=== PATIENT | female | born 1970 | race Caucasian/White ===

== ENCOUNTER 2018-04-20 20:41 | Emergency (ER) | payer BC ==
[2018-04-20 21:45] LABS: Absolute Lymphocytes (CBC) 1.6 K/uL (0.7-4.9); Absolute Monocytes 0.4 K/uL (0.1-1.3); Absolute Neutrophil 9.8 K/uL (1.8-8.0); Basophils % 0.4 % (0-1.3); Eosinophils % 1.1 % (0-4.4); Hematocrit 40.2 % (36.0-45.0); Lymphocytes % 13.4 % (15.3-44.8); MPV 9.6 fL (7.6-11.3); Monocytes % 3.5 % (3.3-12.3); RBC Red Blood Cell Count 4.41 M/uL (3.86-4.86)
[2018-04-20 21:47] LABS: Protime INR 0.96
[2018-04-20 22:01] LABS: ALT/SGPT 46 U/L (12-78); AST/SGOT 55 U/L (15-37); Albumin 3.9 g/dL (3.4-5.0); Alkaline Phosphatase 73 U/L (45-117); BUN Blood Urea Nitrogen 13 mg/dL (7-18); Bicarbonate 26 mmol/L (21-32); Bilirubin Direct 0.1 mg/dL (0-0.2); Bilirubin Total 0.3 mg/dL (0.2-1.0); Glucose Level 85 mg/dL (74-106); Magnesium 2.3 mg/dL (1.8-2.4); NT PRO-BNP 48 pg/mL (<125); Potassium 3.3 mmol/L (3.5-5.1); Protein, Total 7.2 g/dL (6.4-8.2); Sodium Level 140 mmol/L (136-145); Troponin (Emerg Dept Use Only) < 0.02 ng/mL (0.0-0.045)
--- NOTE | 2018-04-20 22:40 | ER ---
Nurse's Notes [facility] Name: Briana Navarro Age: 47 yrs Sex: Female : 1970 Arrival Date: 04/20/2018 Time: 20:42 Bed 20 Private MD: Melvin Zafar B Diagnosis: Chest pain, unspecified Presentation: 04/20 20:45 Presenting complaint: Patient states: that approx 1 hr ago she started to have chest fc pain and abd pain along with shortness of breath. Denies any radiation to back or arm and no nausea or vomiting. Transition of care: patient was not received from another setting of care. Onset of symptoms was April 20, 2018 at 19:30. Risk Assessment: Do you want to hurt yourself or someone else? Patient reports no desire to harm self or others. Initial Sepsis Screen: Does the patient meet any 2 criteria? No. Patient's initial sepsis screen is negative. Does the patient have a suspected source of infection? No. Patient's initial sepsis screen is negative. Care prior to arrival: Medication(s) given: TUMS x 2 at 1930 and Simethicone 120 mg at 1999. 20:45 Method Of Arrival: Ambulatory fc 20:45 Acuity: [place] 3 fc Triage Assessment: 23:24 General: Behavior is calm, cooperative, appropriate for age. jd3 VETERINARIAN SMALL ANIMAL: 20:45 LMP 04/20/2018 Historical: - Allergies: 20:57 Codeine; fc - Home Meds: 20:57 Cymbalta 60 mg oral cpDR 1 cap once daily [Active]; Adderall XR 40 mg Oral 1 cap once fc daily [Active]; Kasemia 7.5 mg 1 tab daily [Active]; - PMHx: 20:57 ADD/ADHD; Depression; fc - PSHx: 20:57 ; Lasik; fc - Immunization history:: Last tetanus immunization: up to date Flu vaccine is up to date. - Social history:: Smoking status: Patient/guardian denies using tobacco, Patient uses alcohol, occasionally. - Ebola Screening: : Patient negative for fever greater than or equal to 101.5 degrees Fahrenheit, and additional compatible Ebola Virus Disease symptoms Patient denies exposure to infectious person Patient denies travel to an Ebola-affected area in the 21 days before illness onset. Screenin:45 Abuse screen: Denies threats or abuse. Nutritional screening: No deficits noted. fc Tuberculosis screening: No symptoms or risk factors identified. Fall Risk None identified. Assessment: 21:01 General: Appears in no apparent distress. uncomfortable. Pain: Complains of pain in jd3 chest Pain does not radiate. Quality of pain is described as sharp, squeezing, Pain began suddenly, Is intermittent. Neuro: Level of Consciousness is awake, alert, obeys commands, Oriented to person, place, time, situation. Cardiovascular: Heart tones S1 S2 present Capillary refill < 3 seconds Patient's skin is warm and dry. Rhythm is regular. Respiratory: Reports shortness of breath Airway is patent Respiratory effort is even, unlabored, Respiratory pattern is regular, symmetrical, Breath sounds are clear bilaterally. GI: No signs and/or symptoms were reported involving the gastrointestinal system. : No signs and/or symptoms were reported regarding the genitourinary system. EENT: No signs and/or symptoms were reported regarding the EENT system. Derm: Skin is intact, Skin is dry, Skin is normal, Skin temperature is warm. Musculoskeletal: Circulation, motion, and sensation intact. Range of motion: intact in all extremities. 21:49 Reassessment: Patient appears in no apparent distress at this time. Patient and/or jd3 family updated on plan of care and expected duration. Pain level reassessed. Patient is alert, oriented x 3, equal unlabored respirations, skin warm/dry/pink. Patient states feeling better. 23:42 Reassessment: Patient appears in no apparent distress at this time. Patient and/or jd3 family updated on plan of care and expected duration. Pain level reassessed. Patient is alert, oriented x 3, equal unlabored respirations, skin warm/dry/pink. Patient states feeling better. 23:50 Reassessment: pt requesting to leave after pain relieved. pt reassured and provider jd3 notified, awaiting provider to discuss plan of care with pt. 04/21 00:42 Reassessment: Patient appears in no apparent distress at this time. Patient and/or jd3 family updated on plan of care and expected duration. Pain level reassessed. Patient is alert, oriented x 3, equal unlabored respirations, skin warm/dry/pink. Vital Signs: 04/20 20:45 BP 122 / 65; Pulse 86; Resp 18; Temp 97.6(TE); Pulse Ox 99% on R/A; Weight 86.18 kg fc (R); Height 5 ft. 6 in. (167.64 cm) (R); Pain 7/10; 21:49 BP 130 / 77; Pulse 78; Resp 17 S; Pulse Ox 100% on R/A; jd3 23:43 BP 118 / 75; Pulse 80; Resp 17 S; Pulse Ox 100% on R/A; jd3 04/21 00:42 BP 120 / 64; Pulse 78; Resp 16 S; Pulse Ox 98% on R/A; jd3 04/20 20:45 Body Mass Index 30.67 (86.18 kg, 167.64 cm) fc ED Course: 04/20 20:42 Patient arrived in ED. am2 20:43 Melvin Zafar MD is Private Physician. am2 20:45 Arm band placed on Patient placed in an exam room, on a stretcher. fc 20:45 Patient has correct armband on for positive identification. Placed in gown. Bed in low fc position. Call light in reach. Side rails up X 1. child monitor on. Pulse ox on. NIBP on. 20:45 No provider procedures requiring assistance completed. Patient maintains SpO2 fc saturation greater than 95% on room air. 20:54 Triage completed. fc 20:55 Sal Carlos RN is Primary Nurse. jd3 20:58 Ankit Loo PA is PHCP. jr8 20:58 Ajit Reeder MD is Attending Physician. jr8 21:05 Inserted saline lock: 20 gauge in left antecubital area, using aseptic technique. Blood gm collected. 21:51 XRAY Chest (1 view) In Process Unspecified. EDMS 22:40 Alberto Dutta MD is Hospitalizing Provider. jr8 22:49 EKG done, by ED staff, reviewed by Ankit FITZGERALD. bb 23:24 Inserted saline lock: 20 gauge in right antecubital area, using aseptic technique. jd3 Blood collected. Patient admitted, IV remains in place. 04/21 00:47 Joselo Hines MD is Referral Physician. jr8 Administered Medications: 04/20 22:59 Drug: Zofran 4 mg Route: IVP; Site: right antecubital; jd3 23:50 Follow up: Response: No adverse reaction jd3 23:50 Not Given (Patient Refused): fentaNYL (PF) 50 mcg IVP once jd3 Outcome: 22:40 Decision to Hospitalize by Provider. jr8 04/21 00:47 Discharge ordered by . jr8 00:58 Discharged to home ambulatory, with family. jd3 00:58 Condition: stable 00:58 Discharge instructions given to patient, family, Instructed on discharge instructions, follow up and referral plans. Demonstrated understanding of instructions, follow-up care. 00:59 Patient left the ED. jd3 Signatures: Dispatcher [employer] EDMS Shazia Darling RN RN fc Isabell Cobb RN RN Ankit Russell PA PA jr8 Sharita Wayne Jonathon, RN RN jd3 Wendy Neri gm Corrections: (The following items were deleted from the chart) 04/20 21:49 21:01 Pain: Complains of pain in chest Pain does not radiate. Quality of pain is jd3 described as sharp, squeezing, Pain began suddenly, jd3 23:52 23:42 Reassessment: Patient appears in no apparent distress at this time. Patient jd3 and/or family updated on plan of care and expected duration. Pain level reassessed. Patient is alert, oriented x 3, equal unlabored respirations, skin warm/dry/pink. jd3
--- NOTE | 2018-04-20 22:41 | EDPHYS ---
Physician Documentation [facility] Name: Briana Navarro Age: 47 yrs Sex: Female : 1970 Arrival Date: 04/20/2018 Time: 20:42 Bed 20 Private MD: Melvin Zafar B ED Physician Ajit Reeder HPI: 04/20 21:26 This 47 yrs old Female presents to ER via Ambulatory with complaints of Chest jr8 Pain. 21:26 Onset: The symptoms/episode began/occurred acutely, today, at 19:30. Associated signs jr8 and symptoms: Pertinent positives: abdominal pain, clammy sensation . Modifying factors: The patient symptoms are alleviated by nothing, the patient symptoms are aggravated by nothing. The patient has not experienced similar symptoms in the past. The patient has not recently seen a physician. Patient still with pain but almost gone now . 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 - Social history:: Smoking status: Patient/guardian denies using tobacco, Patient uses alcohol, occasionally. - Ebola Screening: : Patient negative for fever greater than or equal to 101.5 degrees Fahrenheit, and additional compatible Ebola Virus Disease symptoms Patient denies exposure to infectious person Patient denies travel to an Ebola-affected area in the 21 days before illness onset. ROS: 21:26 Eyes: Negative for injury, pain, redness, and discharge, ENT: Negative for injury, jr8 pain, and discharge, Neck: Negative for injury, pain, and swelling, Respiratory: Negative for shortness of breath, cough, wheezing, and pleuritic chest pain, Back: Negative for injury and pain, MS/Extremity: Negative for injury and deformity, Skin: Negative for injury, rash, and discoloration, Neuro: Negative for headache, weakness, numbness, tingling, and seizure. 21:26 Cardiovascular: Positive for chest pain, Negative for edema, orthopnea, palpitations, paroxysmal nocturnal dyspnea. 21:26 Abdomen/GI: Positive for abdominal pain, Negative for nausea, vomiting, and diarrhea, abdominal distension, anorexia, dysphagia, hematemesis, black/tarry stool, rectal pain, rectal bleeding, bowel incontinence, flatulence. Exam: 21:26 Eyes: Pupils equal round and reactive to light, extra-ocular motions intact. Lids and jr8 lashes normal. Conjunctiva and sclera are non-icteric and not injected. Cornea within normal limits. Periorbital areas with no swelling, redness, or edema. ENT: Nares patent. No nasal discharge, no septal abnormalities noted. Tympanic membranes are normal and external auditory canals are clear. Oropharynx with no redness, swelling, or masses, exudates, or evidence of obstruction, uvula midline. Mucous membranes moist. Neck: Trachea midline, no thyromegaly or masses palpated, and no cervical lymphadenopathy. Supple, full range of motion without nuchal rigidity, or vertebral point tenderness. No Meningismus. Chest/axilla: Normal chest wall appearance and motion. Nontender with no deformity. No lesions are appreciated. Cardiovascular: Regular rate and rhythm with a normal S1 and S2. No gallops, murmurs, or rubs. Normal PMI, no JVD. No pulse deficits. Respiratory: Lungs have equal breath sounds bilaterally, clear to auscultation and percussion. No rales, rhonchi or wheezes noted. No increased work of breathing, no retractions or nasal flaring. Abdomen/GI: Soft, non-tender, with normal bowel sounds. No distension or tympany. No guarding or rebound. No evidence of tenderness throughout. Back: No spinal tenderness. No costovertebral tenderness. Full range of motion. Skin: Warm, dry with normal turgor. Normal color with no rashes, no lesions, and no evidence of cellulitis. MS/ Extremity: Pulses equal, no cyanosis. Neurovascular intact. Full, normal range of motion. Neuro: Awake and alert, GCS 15, oriented to person, place, time, and situation. Cranial nerves II-XII grossly intact. Motor strength 5/5 in all extremities. Sensory grossly intact. Cerebellar exam normal. Normal gait. Vital Signs: 20:45 BP 122 / 65; Pulse 86; Resp 18; Temp 97.6(TE); Pulse Ox 99% on R/A; Weight 86.18 kg fc (R); Height 5 ft. 6 in. (167.64 cm) (R); Pain 7/10; 21:49 BP 130 / 77; Pulse 78; Resp 17 S; Pulse Ox 100% on R/A; jd3 23:43 BP 118 / 75; Pulse 80; Resp 17 S; Pulse Ox 100% on R/A; jd3 04/21 00:42 BP 120 / 64; Pulse 78; Resp 16 S; Pulse Ox 98% on R/A; jd3 04/20 20:45 Body Mass Index 30.67 (86.18 kg, 167.64 cm) fc MDM: 04/20 20:58 Patient medically screened. jr8 22:39 Data reviewed: vital signs, nurses notes, lab test result(s), EKG, radiologic studies, jr8 plain films. Data interpreted: Pulse oximetry: on room air is 100 %. Interpretation: normal. Counseling: I had a detailed discussion with the patient and/or guardian regarding: the historical points, exam findings, and any diagnostic results supporting the discharge/admit diagnosis, lab results, radiology results, the need for further work-up and treatment in the hospital. ED course: Although first round of labs and EKG are unremarkable. Patient started to have chest pain again. Recommended observation over night which patient is fine with . 22:40 The patient was not given aspirin in the Emergency Department. Patient reports taking jr8 aspirin within the past 24 hours. 04/21 00:48 ED course: Patient originally admitted for observation for chest pain. After being pain jr8 free for over an hour wants to go home. Advised that this is not a good idea as we cannot watch her overnight and trend her labs and ecg. Patient still wants to go home. Understands risks of going home. 2nd troponin drawn and was negative as well . 04/20 21:24 Order name: Basic Metabolic Panel; Complete Time: 22:06 jr8 04/20 21:24 Order name: CBC with Diff; Complete Time: 21:53 jr8 04/20 21:24 Order name: LFT's; Complete Time: 22:06 jr8 04/20 21:24 Order name: Magnesium; Complete Time: 22:06 jr8 04/20 21:24 Order name: NT PRO-BNP; Complete Time: 22:[address] [facility] 04/20 21:24 Order name: PT-INR; Complete Time: 21:[address] [facility] 04/20 21:06 Order name: EKG; Complete Time: 21:07 [facility] 04/20 21:24 Order name: Troponin (emerg Dept Use Only); Complete Time: 22:[address] [facility] 04/20 21:24 Order name: XRAY Chest (1 view) [facility] 04/20 23:05 Order name: Echo with Doppler [facility] 04/20 23:57 Order name: Troponin (emerg Dept Use Only) [facility] 04/21 00:22 Order name: Troponin (Emerg Dept Use Only); Complete Time: 00:45 [facility] 04/20 21:06 Order name: EKG - Nurse/Tech; Complete Time: 21:07 [facility] 04/20 21:24 Order name: Cardiac monitoring; Complete Time: 21:[address] [facility] 04/20 21:24 Order name: IV Saline Lock; Complete Time: 21:[address] [facility] 04/20 21:24 Order name: Labs collected and sent; Complete Time: 21:[address] [facility] 04/20 21:24 Order name: O2 Per Protocol; Complete Time: 21:[address] [facility] 04/20 21:24 Order name: O2 Sat Monitoring; Complete Time: 21:[address] [facility] 04/20 22:40 Order name: EKG - Nurse/Tech; Complete Time: 22:[address] [facility] 04/20 23:04 Order name: CONS Physician Consult [facility] 04/20 23:05 Order name: EKG Electrocardiogram EDFL Administered Medications: 04/20 22:59 Drug: Zofran 4 mg Route: IVP; Site: right antecubital; jd3 23:50 Follow up: Response: No adverse reaction jd3 23:50 Not Given (Patient Refused): fentaNYL (PF) 50 mcg IVP once jd3 Disposition: 04/21 03:54 Co-signature as Attending Physician, Ajit Reeder MD. Disposition: 04/21/18 00:47 Discharged to Home. Impression: Chest pain, unspecified. - Condition is Stable. - Discharge Instructions: Nonspecific Chest Pain, Aspirin and Your Heart, Chest Pain Observation. - Medication Reconciliation Form, Thank You Letter, Antibiotic Education, Prescription Opioid Use form. - Follow up: Joselo Hines MD; When: 1 - 2 days; Reason: Recheck today's complaints, Continuance of care, Re-evaluation by your physician. - Problem is new. - Symptoms have improved. Signatures: Dispatcher [employer] EDMS Mary Padgett RN Shazia Browne RN RN Ankit Castellanos, PA AMILCAR jr8 Ajit Reeder MD MD gs Davies, Jonathon, RN RN jd3 Corrections: (The following items were deleted from the chart) 04/20 22:44 22:40 Hospitalization Ordered by Alberto Dutta MD for Observation. Preliminary mw diagnosis is Chest pain, unspecified. Bed requested for Telemetry/MedSurg (observation). Status is Observation. Condition is Stable. Problem is new. Symptoms have improved. UTI on Admission? No. jr8 04/21 00:47 04/20 22:44 04/20/2018 22:40 Hospitalization Ordered by Alberto Dutta MD for jr8 Observation. Preliminary diagnosis is Chest pain, unspecified. Bed requested for Telemetry/MedSurg (observation). Status is Observation. Condition is Stable. Problem is new. Symptoms have improved. UTI on Admission? No. mw 04/21 00:57 00:48 ED course: Patient originally admitted for observation for chest pain. After jr8 being pain free for over an hour wants to go home. Advised that this is not a good idea as we cannot watch her overnight and trend her labs and ecg. Patient still wants to go home. . jr8 00:59 00:47 04/21/2018 00:47 Discharged to Home. Impression: Chest pain, unspecified. jd3 Condition is Stable. Forms are Medication Reconciliation Form, Thank You Letter, Antibiotic Education, Prescription Opioid Use. Follow up: Joselo Hines; When: 1 - 2 days; Reason: Recheck today's complaints, Continuance of care, Re-evaluation by your physician. Problem is new. Symptoms have improved. jr8
[2018-04-20] MEDS ORDERED: MORPHINE 4 MG/ML SYR IV PRN (22:59)
[2018-04-20] MEDS ORDERED: ALPRAZOLAM 0.25 MG TABLET PO PRN (22:59)
[2018-04-20] MEDS ORDERED: FENTANYL CITR 100 MCG/2 ML ONE (23:01)
[2018-04-20] MEDS ORDERED: ONDANSETRON 4 MG/2 ML VIAL ONE (23:02)
--- NOTE | 2018-04-21 08:07 | RAD REPORT ---
EXAM DESCRIPTION: RAD - Chest Single View - 04/20/2018 9:52 pm CLINICAL HISTORY: Chest pain COMPARISON: None. TECHNIQUE: AP portable chest image was obtained 2146 hours . FINDINGS: Lungs are clear. Heart and vasculature are normal. No measurable pleural effusion and no p neumothorax. No acute bony abnormality seen. No acute aortic findings suspected. IMPRESSION: No acute cardiopulmonary process.
--- NOTE | 2018-04-21 08:46 | EKG ---
Test Date: 2018-04-20 Test Time: 20:47:19 Ply Splicer: RANDY MEASUREMENT RESULTS: Intervals: Rate: 84 LA: 136 QRSD: 70 QT: 378 QTc: 446 [place]: P: 24 LA: 136 QRS: 60 T: 65 INTERPRETIVE STATEMENTS: Normal sinus rhythm Normal ECG No previous ECG available for comparison Electronically Signed On 04-21-18 08:46:06 RUBBER FLAP TUBER MACHINE OPERATOR by Joselo Hines
[2018-04-21] MEDS ORDERED: ENOXAPARIN 40 MG/0.4 ML SQ SCH (09:00)
[2018-04-21] MEDS ORDERED: ASPIRIN EC 81 MG TAB PO SCH (09:00)
[2018-04-21] MEDS ORDERED: METOPROLOL TAR 50 MG TAB PO SCH (09:00)
--- NOTE | 2018-04-22 08:03 | EKG ---
Test Date: 2018-04-20 Test Time: 22:43:27 Cashier Credit: RANDY MEASUREMENT RESULTS: Intervals: Rate: 76 MT: 136 QRSD: 72 QT: 406 QTc: 456 [place]: P: 20 MT: 136 QRS: 47 T: 56 INTERPRETIVE STATEMENTS: Sinus rhythm with premature atrial complexes Otherwise normal ECG Compared to ECG 04/20/2018 20:47:19 Atrial premature complex(es) now present Electronically Signed On 04-22-18 08:02:34 PROGRAM WRITER by Joselo Hines
== END 2018-04-21 00:59 | disposition home or self-care (01) ==
LOC: ER 20:41 → UNDOADMOB 23:25 → ERHOLD 23:25
DX: R07.9 Chest pain, unspecified (principal)
CPT/HCPCS: 36415; 71045; 80048; 80076; 83735; 83880; 84484; 85025; 85610; 93005; 96374; 99285; J2405; J3010